=== PATIENT | female | born 1980 | race Caucasian/White ===

== ENCOUNTER 2017-06-13 14:07 | Emergency (ER) | payer BC ==
[~2017-06-13 14:07] MED LIST: HYDR-971 PO
[2017-06-13 14:20] VITALS: BP 160/80
--- NOTE | 2017-06-13 14:35 | PHYS DOC ---
Past History Past Medical History: No Pertinent History Past Surgical History: Alcohol Use: None Drug Use: None Adult General Chief Complaint Chief Complaint: ABDOMINAL PAIN HPI HPI Patient is a 36 year old F who presents with abdominal pain and increased urinary frequency. Alanis states that she has had urinary symptoms over the past couple of days. This morning she developed mid lower and left lower abdominal pain that radiates to her back. She does this pain as dull and intermittent. Her pain is worse with palpation. She also describes mild nausea. She denies other exacerbating or alleviating factors. She has no other associated symptoms at this time. She states that is not possible she could be Review of Systems Review of Systems Constitutional: Denies fever or chills [] Eyes: Denies change in visual acuity, redness, or eye pain [] HENT: Denies nasal congestion or sore throat [] Respiratory: Denies cough or shortness of breath [] Cardiovascular: No additional information not addressed in HPI [] GI: Denies vomiting, bloody stools or diarrhea [] : Negative except history of present illness Musculoskeletal: Denies back pain or joint pain [] Integument: Denies rash or skin lesions [] Neurologic: Denies headache, focal weakness or sensory changes [] Endocrine: Denies polyuria or polydipsia [] All other systems were reviewed and found to be within normal limits, except as documented in this note. Family History Family History No pertinent family medical history was reported Current Medications Current Medications medications were reported she states she Allergies Allergies Allergies Coded Allergies Type Severity Reaction Last Updated Verified Latex, Natural Rubber Allergy Unknown Itching 03/14/15 No Physical Exam Physical Exam Constitutional: Well developed, well nourished, no acute distress, non-toxic appearance. [] HENT: Normocephalic, atraumatic, Eyes: PERRLA, EOMI, conjunctiva normal, no discharge. [] Neck: Normal range of motion, no tenderness, supple, no stridor. [] Cardiovascular:Heart rate regular rhythm, Lungs & Thorax: Bilateral breath sounds clear to auscultation [] Abdomen: Bowel sounds normal, soft, no masses, no pulsatile masses. [] Mild suprapubic tenderness to palpation Skin: Warm, dry, no erythema, no rash. [] Back: no CVA tenderness. [] Mild left flank pain Extremities: No tenderness, no cyanosis, no clubbing, ROM intact, no edema. [] Neurologic: Alert and oriented X 3, normal motor function, normal sensory function, no focal deficits noted. [] Psychologic: Affect normal, judgement normal, mood normal. [] Current Patient Data Vital Signs Normal Vital signs. Please review nursing documentation for specifics Lab Results Laboratory Tests Test 06/13/17 14:20 Urine Collection Type Unknown Urine Color Red Urine Clarity Hazy Urine pH 5.0 Urine Specific [place]lap 1.010 Urine Protein (NEG-TRACE) Urine Glucose (UA) mg/dL (NEG) Urine Ketones (Stick) mg/dL (NEG) Urine Blood (NEG) Urine Nitrite (NEG) Urine Bilirubin Small (NEG) Urine Urobilinogen Dipstick mg/dL (0.2 mg/dL) Urine Leukocyte Esterase (NEG) Urine RBC 3-5 /HPF (0-2) Urine WBC 1-4 /HPF (0-4) Urine Squamous Epithelial Cells Many /LPF Urine Bacteria Few /HPF (0-FEW) Urine Mucus Marked /LPF EKG EKG [] Radiology/Procedures Radiology/Procedures [] Course & Med Decision Making Course & Med Decision Making Pertinent Labs and Imaging studies reviewed. (See chart for details) [] Dragon Disclaimer Dragon Disclaimer This electronic medical record was generated, in whole or in part, using a voice recognition dictation system. Departure Departure: Impression: Primary Impression: Urinary tract infection Disposition: 01 HOME, SELF-CARE Condition: STABLE Referrals: MELINA CARCAMO MD (PCP) Patient Instructions: Urinary Tract Infection Additional Instructions: Alanis was seen in the emergency department for abdominal pain. No emergency medical condition was found on history or physical exam. She was found have signs and symptoms consistent with a urinary tract infection. She was started on antibiotic. She is advised follow-up with her primary care doctor as needed for further management. Scripts Sulfamethoxazole/Trimethoprim (BACTRIM DS TABLET) 1 Each Tablet 1 TAB PO BID for 10 Days, #20 TAB Prov: ANGEL PRADO MD 06/13/17 Problem Qualifiers Primary Impression: Urinary tract infection Urinary tract infection type: site unspecified Hematuria presence: without hematuria Qualified Codes: N39.0 - Urinary tract infection, site not specified ANGEL PRADO MD Jun 13, 2017 14:35
[2017-06-13 15:12] LABS: CLARITY,URINE HAZY; COLOR,URINE RED
[2017-06-13 15:13] LABS: BACTERIA,URINE FEW /HPF (0-FEW); BILIRUBIN,URINE SMALL (NEG); SQUAMOUS EPITHELIAL CELL,UR MANY /LPF
[2017-06-13] MEDS ORDERED: SULF1TAB24 PO (15:59)
[2017-06-13] MEDS ORDERED: SMZ/TMP 800/160MG TABLET. PO ONE (16:00)
== END 2017-06-13 16:10 | disposition home or self-care (01) ==
LOC: ER 14:07
DX: N39.0 Urinary tract infection, site not specified (principal); Z91.040 Latex allergy status
CPT/HCPCS: 81001; 99283

== ENCOUNTER 2020-02-26 16:43 | Emergency (ER) | payer BC ==
[~2020-02-26] VITALS: Ht 162.6 cm; Wt 63.6 kg
[~2020-02-26 16:43] MED LIST changes: +HYDR-3165 PO; -HYDR-971 PO; +SULF1TAB24 PO
[2020-02-26] MEDS ORDERED: HYDR-3165 PO ×2 (18:44→18:51)
[2020-02-26] MEDS ORDERED: NAPR-683 PO (18:44)
--- NOTE | 2020-02-26 18:44 | PHYS DOC ---
Past History Past Medical History: No Pertinent History Past Surgical History: Alcohol Use: None Drug Use: None Adult General Chief Complaint Chief Complaint: UPPER EXTREMITY PAIN HPI HPI Patient is a 39 year old female who presents with complaint of left upper extremity pain. The patient states that her pain starts from the left shoulder and goes down her left arm. Notes that the pain is sharp. Does seem to worsen with movement. Pain came on at rest. Denies any recent fall or injury has not been involved in any recent car accidents or other trauma. Patient notes that she does have history of degenerative disc disease of the cervical spine. Has had recent MRI imaging which does show a bulging disc at C5/C6 causing narrowing of the left foraminal canal. States that she is currently following with pain management through [facility]. She denies weakness to the left arm and does note that she is able to move it is normal but states that it constantly hurts. Is currently taking gabapentin and tizanidine but notes this has not helped with her symptoms. She denies any other complaints at this time. Review of Systems Review of Systems Constitutional: Denies fever or chills [] Eyes: Denies change in visual acuity, redness, or eye pain [] HENT: Denies nasal congestion or sore throat [] Respiratory: Denies cough or shortness of breath [] Cardiovascular: Denies chest pain or edema [] GI: Denies abdominal pain, nausea, vomiting, bloody stools or diarrhea [] : Denies dysuria or hematuria [] Musculoskeletal: Left shoulder and arm pain [] Integument: Denies rash or skin lesions [] Neurologic: Denies headache, focal weakness or sensory changes [] All other systems were reviewed and found to be within normal limits, except as documented in this note. Current Medications Current Medications Current Medications Medications (Trade) Dose Ordered Sig/Noam Start Time Stop Time Status Last Admin Dose Admin Acetaminophen/ Hydrocodone Bitart (Lortab 5/325) 1 tab 1X ONCE 02/26/20 18:45 02/26/20 18:46 UNV Naproxen (Naprosyn) 500 mg 1X ONCE 02/26/20 18:45 02/26/20 18:46 Allergies Allergies Allergies Coded Allergies Type Severity Reaction Last Updated Verified Latex, Natural Rubber Allergy Unknown Itching 03/14/15 No Physical Exam Physical Exam Constitutional: Alert, afebrile, appears in mild discomfort. [] HENT: Normocephalic, atraumatic, bilateral external ears normal, oropharynx moist, no oral exudates, nose normal. [] Eyes: PERRLA, EOMI, conjunctiva normal, no discharge. [] Neck: Normal range of motion, no tenderness, supple, no stridor. [] Cardiovascular:Heart rate regular rhythm, no murmur [] Lungs & Thorax: Bilateral breath sounds clear to auscultation [] Abdomen: Bowel sounds normal, soft, no tenderness, no masses, no pulsatile masses. [] Skin: Warm, dry, no erythema, no rash. [] Back: No tenderness, no CVA tenderness. [] Extremities: No soft tissue or bony tenderness, no cyanosis, no clubbing, ROM intact, no edema. [] Neurologic: Alert and oriented X 3, normal motor function, normal sensory function, no focal deficits noted. [] Current Patient Data Vital Signs Vital Signs Date Time Temp Pulse Resp B/P (MAP) Pulse Ox O2 Delivery O2 Flow Rate FiO2 02/26/20 18:48 98.3 82 18 143/72 (95) 98 02/26/20 18:56 Room Air Vital Signs Date Time Temp Pulse Resp B/P (MAP) Pulse Ox O2 Delivery O2 Flow Rate FiO2 02/26/20 18:56 Room Air 02/26/20 18:48 98.3 82 18 143/72 (95) 98 Lab Results Current Medications Medications (Trade) Dose Ordered Sig/Noam Route PRN Reason Start Time Stop Time Status Last Admin Dose Admin Naproxen (Naprosyn) 500 mg 1X ONCE PO 02/26/20 18:45 02/26/20 18:46 DC 02/26/20 18:56 Acetaminophen/ Hydrocodone Bitart (Lortab 5/325) 1 tab 1X ONCE PO 02/26/20 18:45 02/26/20 18:46 DC 02/26/20 18:56 EKG EKG Not performed [] Radiology/Procedures Radiology/Procedures Not performed [] Course & Med Decision Making Course & Med Decision Making Pertinent Labs and Imaging studies reviewed. 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 The patient symptoms appear consistent with exacerbation of underlying cervical radiculopathy. The patient was treated with Naprosyn and Norman in the emergency department. Written for prescriptions for both medications to continue on outpatient basis and advised follow-up in the next 5 days with primary doctor for reevaluation. Advised return emergency department for any worsening symptoms. Patient voiced understanding and in agreement with treatment plan. Dorcas Dahl MD, wore a level 3 mask, eye protection, and gloves during this patient encounter. Dragon Disclaimer Dragon Disclaimer This electronic medical record was generated, in whole or in part, using a voice recognition dictation system. Departure Departure: Impression: Primary Impression: Cervical radiculopathy Disposition: HOME/RESIDENCE PRIOR TO ADM Condition: STABLE Referrals: MELINA CARCAMO MD (PCP) Patient Instructions: Cervical Radiculopathy Additional Instructions: Follow-up with your primary doctor in the next 3 to 5 days for reevaluation. Return to the emergency department for any worsening symptoms. Scripts Hydrocodone Bit/Acetaminophen (NORCO 5-325 TABLET) 1 Each Tablet 1 TAB PO Q4-6HRS PRN for PAIN, #18 TAB Prov: DORCAS SAUCEDO MD 02/26/20 Naproxen (NAPROSYN) 500 Mg Tablet 500 MG PO BID PRN for PAIN for 7 Days, #14 TAB Prov: DORCAS SAUCEDO MD 02/26/20 Justification of Admission: Justification of Admission: Justification of Admission Dx: N/A DORCAS SAUCEDO MD Feb 26, 2020 18:44
[2020-02-26] MEDS ORDERED: NAPROXEN 500 MG TABLET PO ONE (18:45)
[2020-02-26] MEDS ORDERED: HYDROcodone/APAP 5/325MG 1 TAB TABLET PO ONE (18:45)
[2020-02-26 18:48] VITALS: BP 143/72
== END 2020-02-26 18:58 | disposition home or self-care (01) ==
LOC: ER 16:43
DX: M54.12 Radiculopathy, cervical region (principal); Z91.040 Latex allergy status
CPT/HCPCS: 99283